=== PATIENT | female | born 1960 | race Caucasian/White ===

== ENCOUNTER → 2017-03-25 | Outpatient (CLI) | payer OTHER | LOC: RAD 14:56 | DX: Z12.31 Encounter for screening mammogram for malignant neoplasm of breast (principal) ==

== ENCOUNTER → 2020-08-21 | Outpatient (CLI) | payer BC, OTHER | LOC: RAD 13:39 | PROVIDERS: ATTEND Obstetrics & Gynecology | DX: Z12.31 Encounter for screening mammogram for malignant neoplasm of breast (principal) ==

== ENCOUNTER → 2020-08-27 | Outpatient (CLI) | payer BC, OTHER | LOC: ULTRA 08:48 | PROVIDERS: ATTEND Radiology Diagnostic Radiology | DX: N63.10 Unspecified lump in the right breast, unspecified quadrant (principal); N63.20 Unspecified lump in the left breast, unspecified quadrant ==

== ENCOUNTER → 2020-09-02 | Outpatient (CLI) | payer BC, OTHER ==
--- NOTE | 2020-09-03 17:06 | PATH ---
[facility] [address] [place] [address] PATHOLOGY RPT PROCEDURE Name: HOLLIS SILVERIO Room #: REG CLAIRE Bui#: [id number] Admission: 09/02/20 Date of : 62 Discharge: Report #: [id number] Path Case #: [id number] [facility] Accession Number: [id number] . 01 Material submitted: . breast - RIGHT BREAST MASS 12:00 3CMFN. Modifiers: right . 02 Diagnosis: Breast, right breast mass 12:00, 3 cm, needle core biopsy: - INVASIVE MODERATELY DIFFERENTIATED DUCTAL ADENOCARCINOMA, RAY GRADE II, MEASURING 7 MM IN CONTIGUOUS LENGTH IN A SINGLE CORE. (IUV:kyung; 09/03/2020) QMS 09/03/2020 1332 Local . 02 Comment: Specimen type: Needle core biopsy Tumor site: Right breast mass 12:00, 3 cm Tumor quantitation: 7 mm in contiguous length in a single core Histologic type: Invasive ductal carcinoma Histologic grade: [place] grade II/III Tubules, nuclei and mitoses: 3, 2 and 1, respectively LVSI: Not identified Microcalcifications: Not identified Markers: ER, MD, HER2/modesta, and Ki-67 Block: A1 . Co-review: Dr. Ismael Viramontes (slide A1-level 13) . Findings of this case are telephoned to Ms. Caputo, at our breast center, in the afternoon of 09/03/2020. (IUV:kyung; 09/03/2020) . 02 Electronically signed: . Ghazal Gray MD, Pathologist NPI- [id number] . 01 Gross description: . The specimen is received in formalin, labeled "Hollis Silverio, right breast 12:00 3 cm". Received are multiple needle cores of fibrofatty tissue measuring 1.3 x 0.6 x 0.2 cm in aggregate dimensions. The specimen is submitted entirely in cassettes A1 through A3. The cold ischemic time is 2 minutes. The total formalin fixation time is 8 hours and 28 minutes. (CAA; 09/02/2020) QAC/QAC 09/02/2020 1310 Local . 02 Pathologist provided ICD-10: C50.[address] [address] PATHOLOGY RPT PROCEDURE Name: HOLLIS SILVERIO Room #: REG CLI Hao#: [id number] Admission: 09/02/20 Date of : 62 Discharge: Report #: [id number] Path Case #: [id number] . 02 CPT . [id number] Specimen Comment: A courtesy copy of this report has been sent to [phone] Specimen Comment: Report sent to Performed at: [address], [place] [id number] MD Lyle Means MD Phone: [phone] Performed at: [address] [id number] MD Ghazal Gray MD Phone: [phone]
== END | disposition home or self-care (01) ==
LOC: ULTRA 08:54
PROVIDERS: ATTEND Obstetrics & Gynecology
DX: C50.911 Malignant neoplasm of unspecified site of right female breast (principal); R92.1 Mammographic calcification found on diagnostic imaging of breast